=== PATIENT | female | born 1970 | race African-American/Black ===

== ENCOUNTER 2016-09-24 14:15 | Emergency (ER) | payer BC, OTHER ==
[~2016-09-24] VITALS: Ht 162.6 cm; Wt 69.5 kg
[~2016-09-24 14:15] MED LIST: FER325 PO; FOLI-49 PO; LIPA1CAP4 PO; MULTI PO; OMEG1CAP55 PO; ONDA4TAB11 PO; ONDA4TAB8 PO; THIA100T10 PO
[2016-09-24 14:37] VITALS: Ht 162.6 cm; Wt 69.5 kg
--- NOTE | 2016-09-24 15:44 | EN ---
Date/Time of Note Date/Time of Note DATE: 09/24/16 TIME: 15:43 ER Progress Note Pt wishes to continue waiting for the possibility of getting blood work done. JADE CASPER PA-C Sep 24, 2016 15:44
--- NOTE | 2016-09-24 17:29 | ERD ---
ER Documentation Chief Complaint Date/Time DATE: 09/24/16 TIME: 17:25 Chief Complaint med refil for pancreatic enzymes and vitamins HPI Patient presents with no current complaints. Wants refills on her medications. Denies chest pain, shortness of breath, abdominal pain, nausea, vomiting, diarrhea, and alcohol or drug use. ROS All systems reviewed and are negative except as per history of present illness. Medications Home Meds Active Scripts Ondansetron Hcl* (Zofran*) 4 Mg Tablet, 4 MG PO Q6H for NAUSEA AND/OR VOMITING, #30 TAB Prov:MARY KERNS PA-C 05/20/16 Ondansetron (Zofran Odt) 4 Mg Tab.rapdis, 4 MG PO Q6, #10 Prov:JUANJOSE MALIK DO 05/19/16 [place]-3/Dha/Epa/Fish Oil (FISH OIL EC 1,000 MG SOFTGEL) 1 Each Capsule., 1000 MG PO BID for 30 Days Prov:GALLAGHEROLGA V. SEO SPECIALIST 05/03/16 Multivitamins* (Theragran*) 1 Tab Tab, 1 TAB PO DAILY for 30 Days, TAB Prov:GALLAGHERTAWANAOLGA V. SEO SPECIALIST 05/03/16 Thiamine* (Thiamine*) 100 Mg Tablet, 100 MG PO DAILY for 30 Days, TAB Prov:GALLAGHERTAWANAOLGA V. SEO SPECIALIST 05/03/16 Folic Acid* (Folic Acid*) 1 Mg Tablet, 1 MG PO DAILY for 30 Days, TAB Prov:GALLAGHER,OLGA V. SEO SPECIALIST 05/03/16 Reported Medications Ferrous Sulfate* (Ferrous Sulfate*) 325 Mg Tabec, 325 MG PO DAILY, TAB 01/31/16 Tidzbd-Fyefbnut-Xswbpjg* ([place] BROWN* 12,000) 12,000 L-38,000-60,000 Unit Capsule., 1 CAP PO TID, #90 01/31/16 Allergies Allergies: Coded Allergies: Sulfa (Sulfonamide Antibiotics) (Unverified Allergy, Unknown, RASH, ) PMhx/Soc History of Surgery: Yes (ectopic , LT ELBOW) Anesthesia Reaction: No Hx Neurological Disorder: No Hx Respiratory Disorders: Yes Hx Cardiac Disorders: Yes Hx Psychiatric Problems: No Hx Miscellaneous Medical Probl: Yes (PANCREATITIS, GERD, RHEUMATOID ARTHRITIS) Hx Alcohol Use: Yes (STOPPED 2-WEEKS AGO) Hx Substance Use: No Hx Tobacco Use: Yes Smoking Status: Current every day smoker Physical Exam Vitals Vital Signs Date Time Temp Pulse Resp B/P Pulse Ox O2 Delivery O2 Flow Rate FiO2 09/24/16 14:37 98.4 71 18 141/81 99 Physical Exam Const: No acute distress Head: Atraumatic Eyes: Normal Conjunctiva ENT: Normal External Ears, Nose and Mouth. Neck: Full range of motion..~ No meningismus. Resp: Clear to auscultation bilaterally Cardio: Regular rate and rhythm, no murmurs Abd: Soft, non tender, non distended. Normal bowel sounds Skin: No petechiae or rashes Back: No midline or flank tenderness Ext: No cyanosis, or edema Neur: Awake and alert Psych: Normal Mood and Affect Procedures/MDM Patient has no complaints at this time. Have advised the patient that she should be getting her prescription refills at her primary care provider. I will give him a prescription and then she will have to follow-up with her PCP in the future. Departure Condition: Stable Additional Instructions: Follow-up with PCP for refill prescriptions in the future. JADE CASPER PA-C Sep 24, 2016 17:29 for pain and swelling. Departure Condition: Stable Additional Instructions: Follow-up with PCP for refill prescriptions in the future. JADE CASPER PA-C Sep 24, 2016 17:29
[2016-09-24] MEDS ORDERED: IBUP-1542 PO (18:51)
[2016-09-24] MEDS ORDERED: LIPA1CAP4 PO (18:51)
[2016-09-24] MEDS ORDERED: THIA100T10 PO (18:51)
[2016-09-24] MEDS ORDERED: NEPH PO (18:51)
[2016-09-24] MEDS ORDERED: FOLI-49 PO (18:51)
[2016-09-24] MEDS ORDERED: HYDR-3670 PO (18:51)
[2016-09-24] MEDS ORDERED: HYDR-3012 PO (19:26)
[2016-09-24 19:30] VITALS: BP 130/78; PULSE 78; RESP 18; TEMP 98.9
== END 2016-09-24 19:44 | disposition home or self-care (01) ==
LOC: FTE 14:15
DX: Z76.0 Encounter for issue of repeat prescription (principal); F17.210 Nicotine dependence, cigarettes, uncomplicated
CPT/HCPCS: 99281

== ENCOUNTER 2016-11-19 21:20 | Emergency (ER) | payer BC, OTHER ==
[~2016-11-19] VITALS: Ht 162.6 cm; Wt 70.0 kg
[~2016-11-19 21:20] MED LIST changes: +HYDR-3012 PO; +HYDR-3670 PO; +IBUP-1542 PO; +NEPH PO
[2016-11-19] MEDS ORDERED: ONDANSETRON 4 MG INJ IV STA (21:26)
[2016-11-19] MEDS ORDERED: SOD CHLORIDE 0.9% 1,000 ML IV STA (21:26)
[2016-11-19] MEDS ORDERED: HALOPERIDOL 5 MG INJ IM STA (21:26)
[2016-11-19] MEDS ORDERED: LORAZEPAM 2 MG INJ IM ONE (21:30)
[2016-11-19 21:32] VITALS: Ht 162.6 cm; Wt 70.0 kg
--- NOTE | 2016-11-19 21:32 | ERD ---
ER Documentation Chief Complaint Date/Time DATE: 11/19/16 TIME: 21:28 Chief Complaint HPI This is a 46-year-old -[place] female presents to the emergency department brought in by EMS after the patient was found on the corner of a sidewalk sitting down drinking vodka straight from a liter bottle. A bystander had phoned 911 as the patient appeared to be clinically intoxicated. EMS indicated when the patient arrived she had quickly drank the rest of the vodka. She had an episode of nonbloody nonbilious emesis shortly after. They indicated there is no signs of trauma or drug paraphernalia. The patient denied any illicit drug use and stated she did not have a headache or changes in vision. She denied any abdominal pain. She denies any hemoptysis hematemesis or melanotic stools. ROS All systems reviewed and are negative except as per history of present illness. Medications Home Meds Active Scripts Hydroxyzine Hcl* (Hydroxyzine Hcl*) 50 Mg Tablet, 50 MG PO Q6H Y for ITCHING for 14 Days, #30 TAB Prov:JADE CASPER PA-C 09/24/16 Hydralazine Hcl* (Hydralazine Hcl*) 10 Mg Tablet, 10 MG PO Q6H Y for PRURITUS for 14 Days, #60 TAB Prov:JADE CASPER PA-C 09/24/16 Folic Acid* (Folic Acid*) 1 Mg Tablet, 1 MG PO DAILY for 14 Days, TAB Prov:JADE CASPER PA-C 09/24/16 Thiamine* (Thiamine*) 100 Mg Tablet, 100 MG PO DAILY for 14 Days, TAB Prov:JADE CASPER PA-C 09/24/16 Bnxksa-Ihdqcmav-Mscgmpl* (Creon DR* 12,000) 12,000 L-38,000-60,000 Unit Capsule.dr, 1 CAP PO WITH MEALS for 14 Days, CAP Prov:JADE CASPER PA-C 09/24/16 Multivit/Ca Carb/B Cmplx/Fa* (Lucila-Rosibel*) 1 Tab Tab, 1 TAB PO DAILY for 14 Days , TAB Prov:JADE CASPER PA-C 09/24/16 Ibuprofen* (Motrin*) 600 Mg Tab, 600 MG PO Q6H Y for PAIN AND OR ELEVATED TEMP, #14 TAB Prov:JADE CASPER PA-C 09/24/16 Ondansetron Hcl* (Zofran*) 4 Mg Tablet, 4 MG PO Q6H for NAUSEA AND/OR VOMITING, #30 TAB Prov:MARY KERNS PA-C 05/20/16 Ondansetron (Zofran Odt) 4 Mg Tab.rapdis, 4 MG PO Q6, #10 Prov:JUANJOSE MALIK DO 05/19/16 [place]-3/Dha/Epa/Fish Oil (FISH OIL EC 1,000 MG SOFTGEL) 1 Each Capsule.dr, 1000 MG PO BID for 30 Days Prov:GALLAGHER,OLGA V. AND RESCUE FIRE FIGHTER CRASH FIRE 05/03/16 Multivitamins* (Theragran*) 1 Tab Tab, 1 TAB PO DAILY for 30 Days, TAB Prov:GALLAGHER,OLGA V. AND RESCUE FIRE FIGHTER CRASH FIRE 05/03/16 Thiamine* (Thiamine*) 100 Mg Tablet, 100 MG PO DAILY for 30 Days, TAB Prov:GALLAGHER,OLGA V. AND RESCUE FIRE FIGHTER CRASH FIRE 05/03/16 Folic Acid* (Folic Acid*) 1 Mg Tablet, 1 MG PO DAILY for 30 Days, TAB Prov:GALLAGHER,OLGA V. AND RESCUE FIRE FIGHTER CRASH FIRE 05/03/16 Reported Medications Ferrous Sulfate* (Ferrous Sulfate*) 325 Mg Tabec, 325 MG PO DAILY, TAB 01/31/16 Brctia-Moxhbaba-Dsvsusl* ([place] BROWN* 12,000) 12,000 L-38,000-60,000 Unit Capsule.dr, 1 CAP PO TID, #90 01/31/16 Allergies Allergies: Coded Allergies: Sulfa (Sulfonamide Antibiotics) (Unverified Allergy, Unknown, RASH, ) PMhx/Soc History of Surgery: Yes (ectopic , LT ELBOW) Anesthesia Reaction: No Hx Neurological Disorder: No Hx Respiratory Disorders: Yes Hx Cardiac Disorders: Yes Hx Psychiatric Problems: No Hx Miscellaneous Medical Probl: Yes (PANCREATITIS, GERD, RHEUMATOID ARTHRITIS) Hx Alcohol Use: Yes (STOPPED 2-WEEKS AGO) Hx Substance Use: No Hx Tobacco Use: Yes Physical Exam Physical Exam Constitutional:Well-developed. Well-nourished. The patient was being very belligerent, yelling profanities at nursing staff as well as EMS. HEENT:Normocephalic. Atraumatic.Pupils were equal round reactive to light. Moist mucous membranes.No tonsillar exudates. No nasal septal hematoma. No hemotympanum. Neck: No nuchal rigidity. No lymphadenopathy. No posterior cervical spine tenderness or step-offs. Respiratory: Not using accessory muscles of respiration.Lungs were clear to auscultation bilaterally. No rhonchi. No rales. No wheezing. Cardiovascular: Regular rate regular rhythm.No murmurs. No rubs were appreciated.S1, S2 normal. Distal pulses are palpable 2+ bilaterally. GI: Abdomen was soft. Nontender. Non Distended. No pulsatile abdominal masses or bruits. No rebound. No guarding. Bowel sounds were present and normal. Muscle skeletal: Full range of motion of both the upper and lower extremities bilaterally.Normal muscle tone.No assymetrical calf tenderness or swelling. Skin: No petechia, no purpura. No lesions on the palms or the soles of the feet. No maculopapular rash. NEURO: Patient was alert, awake, orientated x3.No facial droop. Patient smelled of alcohol. Gait observed and was ataxic with slurred speech. Procedures/MDM The patient presented to the emergency department with an acute and persistent change in their mental status. The differential diagnosis is diverse however reversible causes such as hypoglycemia, opiate overdose, thiamine deficiency were immediately considered. The patient was placed on a high man, continuous pulse oximetry and IV access was established. The patients airway was secure however hypoxic events such as anemia, shock, or severe pulmonary disease were all considered as etiologies in this patients presentation. Circulation assessed with good cap refill and did not require fluids or pressure support. Finger stick for rapid glucose determined to be normal. I did feel the patient's encephalopathy was likely result of acute alcohol intoxication as her serum ethanol level was elevated. The patient became very belligerent with both nursing staff and myself and verbal de-escalation was unable to calm the patient down. She was attempting to leave but given that I felt she was clinically intoxicated and was a threat to herself given that she could fall and undergo head trauma, she was chemically sedated with Haldol and Ativan in order to prevent removal of life saving devices. IV access had been established afterwards and the patient received IV Zofran and a liter bolus of 0.9 normal saline. Observation Note: Time: 4 hours Family Hx: No Hypertension Evaluation: Multiple exams showed improving symptoms and no evidence of alcohol intoxication, neurological deficits or delirium tremors The patient was discharged home in fair condition. They were instructed to return to the emergency department at any time if there was any worsening of their condition. The patient stated they would follow up with their PCP in the next 24-48 hours to initiate a suitable medication regimen under the care of their PCP as well as to allow their PCP to monitor any drug reactions. The patient was discharged home with prescriptions after they gave informed consent to the new medication. They were also fully informed by myself on the adverse effects and adverse drug interactions in order to provide adequate safeguards to prevent possible adverse reactions to medications. Departure Diagnosis: Primary Impression: Alcoholic intoxication Complication of substance-induced condition: uncomplicated Qualified Code: F10.120 - Alcoholic intoxication, uncomplicated Condition: Fair SHAUNNA DUQUE November 19, 2016 21:32
[2016-11-19 22:32] LABS: ADD SCAN DIFF NO
[2016-11-19 22:37] LABS: BASOPHILS % 0.7 % (0.0-2.0); EOSINOPHILS % 0.5 % (0.0-7.0); HEMATOCRIT 37.5 % (37.0-47.0); HEMOGLOBIN 12.8 g/dl (12.0-16.0); LYMPHOCYTES # 1.5 10^3/ul (0.8-2.9); LYMPHOCYTES % 32.9 % (15.0-51.0); MEAN CORPUSCULAR HEMOGLOBIN 27.6 pg (29.0-33.0); MEAN CORPUSCULAR HGB CONC 34.1 g/dl (32.0-37.0); MEAN PLATELET VOLUME 11.7 fl (7.4-10.4); MONOCYTE # 0.7 10^3/ul (0.3-0.9); MONOCYTES % 15.6 % (0.0-11.0); NEUTROPHIL # 2.2 10^3/ul (1.6-7.5); NEUTROPHILS % 49.8 % (39.0-77.0); PLATELET COUNT 159 10^3/UL (140-415); RED BLOOD COUNT 4.63 10^6/ul (4.20-5.40); RED CELL DISTRIBUTION WIDTH 17.4 % (11.5-14.5); WHITE BLOOD COUNT 4.4 10^3/ul (4.8-10.8)
[2016-11-19 22:53] LABS: AMYLASE 161 U/L (11-123)
[2016-11-19 23:09] LABS: ALBUMIN 4.9 g/dl (3.3-4.9)
[2016-11-19 23:10] LABS: CHLORIDE 86 mmol/L (97-110); POTASSIUM 3.5 mmol/L (3.5-5.1); SODIUM 136 mmol/L (135-144)
[2016-11-19 23:12] LABS: ANION GAP 27 (8-16); ASPARTATE AMINO TRANSFERASE 119 IU/L (15-46); BILIRUBIN,INDIRECT 0.5 mg/dl (0-1.1); BILIRUBIN,TOTAL 0.5 mg/dl (0.2-1.3); CARBON DIOXIDE 27 mmol/L (21-31); CREATININE 1.09 mg/dl (0.44-1.00)
[2016-11-19 23:13] LABS: ALANINE AMINOTRANSFERASE 79 IU/L (13-69); ALBUMIN/GLOBULIN RATIO 1.44; ALKALINE PHOSPHATASE 63 IU/L (42-121); BLOOD UREA NITROGEN 10 mg/dl (7-20); CALCIUM 9.5 mg/dl (8.4-10.2); GLUCOSE 116 mg/dl (70-220); SALICYLATE < 1.0 mg/dl (5.0-30.0); TOTAL PROTEIN 8.3 g/dl (6.1-8.1)
[2016-11-19 23:14] LABS: ACETAMINOPHEN < 10.0 ug/ml (10.0-30.0)
[2016-11-20 04:39] VITALS: TEMP 97.8
[2016-11-20 05:03] VITALS: BP 133/90; PULSE 117; RESP 18
== END 2016-11-20 05:04 | disposition home or self-care (01) ==
LOC: E/R 21:20
DX: F10.120 Alcohol abuse with intoxication, uncomplicated (principal); Z87.891 Personal history of nicotine dependence
CPT/HCPCS: 36415; 80053; 80306; 82150; 83690; 84703; 85025; 96372; 96374; J1630; J2060; J2405; J7030; Z7502

== ENCOUNTER 2017-03-23 04:06 | Emergency (ER) | payer OTHER ==
[~2017-03-23] VITALS: Ht 157.5 cm; Wt 63.5 kg
[~2017-03-23 04:06] MED LIST changes: -FOLI-49 PO; -MULTI PO; -OMEG1CAP55 PO; -ONDA4TAB8 PO
[2017-03-23 04:10] VITALS: Ht 157.5 cm; Wt 63.5 kg
[2017-03-23] MEDS ORDERED: IBUPROFEN 600 MG TAB PO ONE (04:30)
[2017-03-23] MEDS ORDERED: LORAZEPAM 2 MG INJ IM ONE (04:30)
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
[2017-03-23] MEDS ORDERED: IBUP-1542 PO (05:10)
--- NOTE | 2017-03-23 05:43 | RADRPT ---
PROCEDURE: Noncontrast CT Head. CLINICAL INDICATION: Pain. TECHNIQUE: Noncontrast CT of the head was obtained. The administered radiation dose was CTDI vol = 43 mGy, DLP = 720 mGy-cm. One or more of the following dose reduction techniques were used: automate d exposure control, adjustment of the mA and/or kV according to patient size and/or use of iterative reconstruction technique. COMPARISON: No pertinent prior examinations were submitted for comparison. FINDINGS: The ventricles and sulci are within normal limits. There is no acute intracranial hemorrhage or ext ra-axial fluid collection. There is no mass effect. No midline shift is identified. There is no loss of mistry-white differentiation to suggest acute infarction. The calvarium and skull base are grossly intact. Please refer to the CT scan of the facial bones. IMPRESSION: No acute findings. RPTAT: HIKT .Jerome Fletcher MD, MD Date Time Electronically viewed and signed by .Jerome Fletcher MD, on 03/23/2017 05:42 .T/
--- NOTE | 2017-03-23 05:49 | RADRPT ---
PROCEDURE: Noncontrast CT facial bones. CLINICAL INDICATION: Trauma. TECHNIQUE: Noncontrast CT of the facial bones was obtained. Coronal and sagittal re-formations were provided. The administered radiation dose was CTDI vol = 29 mGy, DLP = 488 mGy-cm. One or more of the following dose reduction techniques were used: automated exposure control, adjustment of the mA and/or kV according to patient size and/or use of iterative reconstruction technique. COMPARISON: No pertinent prior examinations were submitted for comparison. FINDINGS: No acute facial bone fractures are seen. The globes are intact. The bony orbits are without worrisome osseous lesion. The extraocular muscl es and optic nerve complexes are normal in caliber. No intraorbital hematoma or inflammatory change s are present. The paranasal sinuses and mastoid air cells are without fluid. IMPRESSION: No acute fracture. RPTAT: HIKT .Jerome Fletcher MD, MD Date Time Electronically viewed and signed by .Jerome Fletcher MD, on 03/23/2017 05:48 .T/
[2017-03-23 06:38] VITALS: BP 135/79; PULSE 70; RESP 18; TEMP 97.9
== END 2017-03-23 09:59 | disposition home or self-care (01) ==
LOC: E/R 04:06
DX: F10.10 Alcohol abuse, uncomplicated (principal); S00.83XA Contusion of other part of head, initial encounter; I10 Essential (primary) hypertension; Y08.89XA Assault by other specified means, initial encounter
CPT/HCPCS: 70450; 70486; 80306; 96372; J2060; Z7502; Z7610

== ENCOUNTER 2017-03-23 19:41 | Emergency (ER) | payer OTHER ==
[~2017-03-23] VITALS: Ht 167.6 cm; Wt 68.0 kg
[2017-03-23 20:11] VITALS: Ht 167.6 cm; Wt 68.0 kg
[2017-03-23 20:16] LABS: BASOPHILS % 0.9 % (0.0-2.0); EOSINOPHILS # 0.1 10^3/ul (0.0-0.5); EOSINOPHILS % 1.5 % (0.0-7.0); HEMATOCRIT 31.9 % (37.0-47.0); HEMOGLOBIN 11.3 g/dl (12.0-16.0); LYMPHOCYTES # 1.5 10^3/ul (0.8-2.9); LYMPHOCYTES % 44.9 % (15.0-51.0); MEAN CORPUSCULAR HEMOGLOBIN 28.4 pg (29.0-33.0); MEAN CORPUSCULAR HGB CONC 35.4 g/dl (32.0-37.0); MEAN CORPUSCULAR VOLUME 80.2 fl (82.0-101.0); MEAN PLATELET VOLUME 11.9 fl (7.4-10.4); MONOCYTE # 0.3 10^3/ul (0.3-0.9); MONOCYTES % 8.1 % (0.0-11.0); NEUTROPHILS % 44.3 % (39.0-77.0); PLATELET COUNT 116 10^3/UL (140-415); RED BLOOD COUNT 3.98 10^6/ul (4.20-5.40); RED CELL DISTRIBUTION WIDTH 14.8 % (11.5-14.5); WHITE BLOOD COUNT 3.3 10^3/ul (4.8-10.8)
[2017-03-23 20:21] LABS: ADD UMIC NO; UR ASCORBIC ACID NEGATIVE (NEGATIVE); UR BACTERIA FEW /HPF (NONE SEEN); UR BILIRUBIN (Dip) NEGATIVE (NEGATIVE); UR BLOOD (Dip) NEGATIVE (NEGATIVE); UR CLARITY SLIGHTLY CLOUDY (CLEAR); UR COLOR YELLOW (YELLOW); UR GLUCOSE (Dip) NEGATIVE (NEGATIVE); UR KETONES (Dip) NEGATIVE (NEGATIVE); UR LEUKOCYTE ESTERASE (Dip) NEGATIVE Leu/ul (NEGATIVE); UR NITRITE (Dip) NEGATIVE (NEGATIVE); UR RBC 0 /HPF (0-5); UR SPECIFIC GRAVITY (Dip) 1.012 (1.003-1.030); UR SQUAMOUS EPITHELIAL CELL FEW /HPF (FEW); UR TOTAL PROTEIN (Dip) NEGATIVE (NEGATIVE); UR UROBILINOGEN (Dip) NEGATIVE (NEGATIVE)
[2017-03-23 20:33] LABS: ALBUMIN/GLOBULIN RATIO 1.29; BILIRUBIN,INDIRECT 0.4 mg/dl (0-1.1); BILIRUBIN,TOTAL 0.4 mg/dl (0.2-1.3); CALCIUM 8.8 mg/dl (8.4-10.2); CREATININE 0.95 mg/dl (0.44-1.00); POTASSIUM 4.1 mmol/L (3.5-5.1); TOTAL PROTEIN 7.1 g/dl (6.1-8.1)
--- NOTE | 2017-03-23 20:42 | ERA ---
ER Documentation Chief Complaint Date/Time DATE: 03/23/17 TIME: 20:37 Chief Complaint bib ra from street for etoh and shoulder pain HPI This is a 46-year-old female who is a very poor historian who presents via EMS for alcohol intoxication. The patient is a very limited and difficult historian and is having a labile mood and intermittently crying. She admits to drinking a significant amount of alcohol tonight. She is describing left trapezius and shoulder pain for "several months ". She states that "somebody needs to x-ray this shit ". The patient denies any falls or trauma, no chest pain or shortness of breath. She states the pain is worse when moving and " just needs to be fixed". When asked if she is suicidal the patient cries and says I think i might be. ROS All systems reviewed and are negative except as per history of present illness. Medications Home Meds Active Scripts Ibuprofen* (Ibuprofen*) 600 Mg Tablet, 600 MG PO Q8 for PAIN AND/OR INFLAMMATION , #30 TAB Prov:SERGIO CONNELLY MD 03/23/17 Hydroxyzine Hcl* (Hydroxyzine Hcl*) 50 Mg Tablet, 50 MG PO Q6H Y for ITCHING for 14 Days, #30 TAB Prov:JADE CASPER PA-C 09/24/16 Hydralazine Hcl* (Hydralazine Hcl*) 10 Mg Tablet, 10 MG PO Q6H Y for PRURITUS for 14 Days, #60 TAB Prov:JADE CASPER PA-C 09/24/16 Thiamine* (Thiamine*) 100 Mg Tablet, 100 MG PO DAILY for 14 Days, TAB Prov:JADE CASPER PA-C 09/24/16 Multivit/Ca Carb/B Cmplx/Fa* (Lucila-Rosibel*) 1 Tab Tab, 1 TAB PO DAILY for 14 Days , TAB Prov:JADE CASPER PA-C 09/24/16 Ibuprofen* (Motrin*) 600 Mg Tab, 600 MG PO Q6H Y for PAIN AND OR ELEVATED TEMP, #14 TAB Prov:JADE CASPER PA-C 09/24/16 Ondansetron (Zofran Odt) 4 Mg Tab.rapdis, 4 MG PO Q6, #10 Prov:JUANJOSE MALIK DO 05/19/16 Reported Medications Ferrous Sulfate* (Ferrous Sulfate*) 325 Mg Tabec, 325 MG PO DAILY, TAB 01/31/16 Enxwmb-Pyindjqy-Cfhwrwq* ([place] BROWN* 12,000) 12,000 L-38,000-60,000 Unit Capsule., 1 CAP PO TID, #90 01/31/16 Allergies Allergies: Coded Allergies: Sulfa (Sulfonamide Antibiotics) (Unverified Allergy, Unknown, RASH, ) PMhx/Soc Medical and Surgical Hx: pt denies Medical Hx, pt denies Surgical Hx History of Surgery: Yes (ectopic , LT ELBOW) Anesthesia Reaction: No Hx Neurological Disorder: No Hx Respiratory Disorders: Yes Hx Cardiac Disorders: Yes Hx Psychiatric Problems: No Hx Miscellaneous Medical Probl: Yes (PANCREATITIS, GERD, RHEUMATOID ARTHRITIS) Hx Alcohol Use: Yes Hx Substance Use: No Hx Tobacco Use: No Smoking Status: Current every day smoker FmHx Family History: No diabetes Physical Exam Vitals Vital Signs Date Time Temp Pulse Resp B/P Pulse Ox O2 Delivery O2 Flow Rate FiO2 03/23/17 20:11 98.6 101 18 126/81 100 Physical Exam General: Smells strongly of alcohol, labile mood, tearful Head: Normocephalic, atraumatic Eyes: Pupils equally reactive, EOM intact ENT: Moist mucous membranes Neck: Supple, no lymphadenopathy Respiratory: Lungs clear bilaterally, no distress Cardiovascular: RRR, no murmurs, rubs, or gallops Abdominal: Soft, non-tender, non-distended, no peritoneal signs : Deferred MSK: Soft tissue tenderness along the left trapezius muscle and shoulder but full active and passive range of motion without bony abnormalities or deformities. Left upper extremity is neurovascular intact distally. No midline tenderness deformities or step-offs to the thoracolumbar spine Neurologic: Poorly cooperative, intoxicated, moving all extremities Skin: No rash, no evidence of trauma Psych: Labile mood, suicidal ideation Result Diagram: 03/23/17 1950 03/23/171949 Results 24 hrs Laboratory Tests Test 03/23/17 19:50 03/23/17 20:00 White Blood Count 3.310^3/ul Red Blood Count 3.9810^6/ul Hemoglobin 11.3g/dl Hematocrit 31.9% Mean Corpuscular Volume 80.2fl Mean Corpuscular Hemoglobin 28.4pg Mean Corpuscular Hemoglobin Concent 35.4g/dl Red Cell Distribution Width 14.8% Platelet Count 71374^3/UL Mean Platelet Volume 11.9fl Neutrophils % 44.3% Lymphocytes % 44.9% Monocytes % 8.1% Eosinophils % 1.5% Basophils % 0.9% Nucleated Red Blood Cells % 0.0/100WBC Neutrophils # (Manual) 1.510^3/ul Lymphocytes # 1.510^3/ul Monocytes # 0.310^3/ul Eosinophils # 0.110^3/ul Basophils # 0.010^3/ul Nucleated Red Blood Cells # 0.010^3/ul Sodium Level 142mmol/L Potassium Level 4.1mmol/L Chloride Level 102mmol/L Carbon Dioxide Level 24mmol/L Anion Gap 20 Blood Urea Nitrogen 14mg/dl Creatinine 0.95mg/dl Glucose Level 76mg/dl Calcium Level 8.8mg/dl Total Bilirubin 0.4mg/dl Direct Bilirubin 0.00mg/dl Indirect Bilirubin 0.4mg/dl Aspartate Amino Transf (AST/SGOT) 52IU/L Alanine Aminotransferase (ALT/SGPT) 35IU/L Alkaline Phosphatase 56IU/L Total Protein 7.1g/dl Albumin 4.0g/dl Globulin 3.10g/dl Albumin/Globulin Ratio 1.29 Ethyl Alcohol Level 393.0mg/dl Urine Color YELLOW Urine Clarity SLIGHTLY CLOUDY Urine pH 5.0 Urine Specific [place] 1.012 Urine Ketones NEGATIVEmg/dL Urine Nitrite NEGATIVEmg/dL Urine Bilirubin NEGATIVEmg/dL Urine Urobilinogen NEGATIVEmg/dL Urine Leukocyte Esterase NEGATIVELeu/ul Urine Microscopic RBC 0/HPF Urine Microscopic WBC 2/HPF Urine Squamous Epithelial Cells FEW/HPF Urine Bacteria FEW/HPF Urine Hemoglobin NEGATIVEmg/dL Urine Glucose NEGATIVEmg/dL Urine Total Protein NEGATIVEmg/dl Urine Opiates Screen Negative Urine Barbiturates Negative Urine Amphetamines Screen Negative Urine Benzodiazepines Screen Negative Urine Cocaine Screen Negative Urine Cannabinoids Negative Current Medications Medications (Trade) Dose Ordered Sig/Yue Route PRN Reason Start Time Stop Time Status Last Admin Dose Admin Ibuprofen (Motrin) 800 mg ONCE ONCE PO 03/23/17 22:00 03/23/17 22:03 DC 03/23/17 22:04 Procedures/MDM EKG/DIAGNOSTIC IMAGING: Chest x-ray: I reviewed and interpreted a 1 view of the chest Mediastinum: No enlargement Cardiac silhouette: No cardiomegaly Airspace: Clear lung pham bilaterally without evidence of pneumothorax Bones: No evidence of fracture X-ray left shoulder: I reviewed and interpreted multiple views of the x-ray Bones: No evidence of acute fracture dislocation or subluxation Soft tissue: No evidence of foreign body LAB INTERPRETATION: Pancytopenia consistent with baseline secondary to likely chronic alcohol abuse , etoh elevation MEDICAL DECISION MAKING: The patient's presentation is consistent with underlying psychiatric illness or alcohol intoxication. The patient suicidal thoughts may only be related to her alcohol intoxication she may benefit from reevaluation once she is sober. The patient's shoulder pain appears to be very consistent with musculoskeletal etiology likely trapezius strain. It is chronic. No signs of pulmonary embolism or dissection. X-ray imaging of the chest and shoulder would be reasonable. No evidence of trauma. I have a much lower clinical concern for delirium or acute organic pathology such as toxicologic, metabolic, ischemic, intracranial hemorrhage, infectious process. However, we must rule this out prior to relying a diagnosis of underlying psychiatric illness. The patient's workup will include medical screening examination, laboratory analysis, and diagnostic imaging such as EKG, chest x-ray or CT brain as indicated. If the patient's medical examination and laboratory analysis do not reveal acute organic pathology the patient will be medically cleared for psychiatric evaluation. ER COURSE: The patient's laboratory analysis, diagnostic imaging do not suggest an acute organic pathology. At this time I believe the patient's presentation is very consistent with underlying psychiatric illness. The patient is medically cleared for psychiatric evaluation. I kept the patient and/or family informed of laboratory and diagnostic imaging results throughout the emergency room course. CONSULTATION: Psychiatric consultation: Telemetry medicine psychiatry has been consulted on this case to evaluate the patient for possible acute psychiatric illness that would require inpatient hospitalization. DISPOSITION PLAN: Pending psychiatric evaluation and sobriety Departure Diagnosis: Primary Impression: Alcoholic intoxication Qualified Code: F10.920 - Alcoholic intoxication without complication Additional Impressions: Pancytopenia Strain of left trapezius muscle Qualified Code: S46.812A - Strain of left trapezius muscle, initial encounter Suicidal ideation Condition: Stable JEAN PAUL PICHARDO MD Mar 23, 2017 20:42
[2017-03-23 20:45] LABS: BARBITURATES Negative (NEGATIVE); BENZODIAZEPINES Negative (NEGATIVE); CANNABINOIDS Negative (NEGATIVE); COCAINE Negative (NEGATIVE); OPIATES Negative (NEGATIVE)
[2017-03-23] MEDS ORDERED: IBUPROFEN 800 MG TAB PO ONE (22:00)
--- NOTE | 2017-03-23 22:55 | RADRPT ---
PROCEDURE: Portable chest x-ray. CLINICAL INDICATION: Altered level of consciousness. TECHNIQUE: Portable AP view of the chest. COMPARISON: 05/20/2016. FINDINGS: No pulmonary edema or conolidation is identified. The cardiac silhouette is magnified. No pleural effusion is seen. There is no pneumothorax. IMPRESSION: 1. No evidence of acute cardiopulmonary disease. RPTAT: HTAR .Emile Hancock MD, MD Date Time Electronically viewed and signed by .Emile Hancock MD, on 03/23/2017 22:54 .R/
--- NOTE | 2017-03-23 22:56 | RADRPT ---
PROCEDURE: XR Shoulder. CLINICAL INDICATION: Trapezius pain. TECHNIQUE: 3 views of the left shoulder. COMPARISON: None available. FINDINGS: There is no acute fracture or dislocation. There is a healed fracture of the humeral diaphysis, part ially imaged. The coracoclavicular interval is normal. The joint spaces are preserved. There are n o periarticular calcifications. The visualized lung is clear. IMPRESSION: 1. No acute fracture or dislocation of the left shoulder. 2. Healed fracture of the humeral diaphysis. RPTAT: HTAR .Emile Hancock MD, Date Time Electronically viewed and signed by .Emile Hancock MD, on 03/23/2017 22:56 .R/
[2017-03-24] MEDS ORDERED: IBUPROFEN 600 MG TAB PO ONE (03:00)
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
--- NOTE | 2017-03-24 12:16 | EN ---
Date/Time of Note Date/Time of Note DATE: 03/24/17 TIME: 12:12 ER Progress Note Observation Note: Time: 4 hours Family Hx: Positive for diabetes PMH: RA, EtOH abuse x 20years Evaluation: Multiple exams showed improving symptoms and no evidence of clinical decompensation. This patient was signed out to me at 6 AM on March 24, 2017. This patient was pending clinical sobriety in order to have a tele-psychiatric consult completed. The patient was observed for several hours to clinical sobriety. Upon reevaluation, the patient was appropriate and alert. She is not suicidal or homicidal. I do not feel that she is going to harm herself or others. A Tele -psychiatrist did evaluate the patient and felt that she was safe for discharge. The patient is desiring help to quit alcohol. Social work spoke to her and offered her resources that she may call to complete an intake and seek treatment. At this time, the patient is stable for discharge. She will also follow-up with her primary care physician in 2-3 days for reevaluation. She will be given precautions with which to return to the emergency department. DANIELLE MILNER MD Mar 24, 2017 12:16
[2017-03-24] MEDS ORDERED: IBUPROFEN 800 MG TAB PO ONE (12:30)
[2017-03-24 12:40] VITALS: BP 129/70; PULSE 72; RESP 18; TEMP 98.1
== END 2017-03-24 12:43 | disposition home or self-care (01) ==
LOC: E/R 19:41
DX: F10.920 Alcohol use, unspecified with intoxication, uncomplicated (principal); S46.812A Strain of other muscles, fascia and tendons at shoulder and upper arm level, left arm, initial encounter; D61.818 Other pancytopenia; R45.851 Suicidal ideations; F17.210 Nicotine dependence, cigarettes, uncomplicated; X58.XXXA Exposure to other specified factors, initial encounter; Y92.410 Unspecified street and highway as the place of occurrence of the external cause
CPT/HCPCS: 36415; 71010; 73030; 80053; 80306; 80307; 81001; 85025; Z7502; Z7610; 81003

== ENCOUNTER 2017-09-25 12:04 | Emergency (ER) | END 2017-09-25 15:40 | disposition home or self-care (01) ==

== ENCOUNTER 2017-11-10 17:31 | Emergency (ER) | END 2017-11-10 18:19 | disposition left against medical advice (07) ==

== ENCOUNTER 2017-12-14 11:51 | Emergency (ER) | END 2017-12-14 13:45 | disposition home or self-care (01) ==

== ENCOUNTER 2017-12-31 16:09 | Emergency (ER) | END 2017-12-31 16:54 | disposition home or self-care (01) ==

== ENCOUNTER 2018-01-23 07:45 | Emergency (ER) | END 2018-01-26 19:00 | disposition home or self-care (01) ==

== ENCOUNTER 2018-05-11 12:18 | Emergency (ER) | END 2018-05-11 15:30 | disposition home or self-care (01) ==

== ENCOUNTER 2018-06-16 12:27 | Emergency (ER) | END 2018-06-16 19:00 | disposition home or self-care (01) ==

== ENCOUNTER 2018-11-27 13:42 | Emergency (ER) | payer OTHER ==
[~2018-11-27] VITALS: Wt 79.0 kg
[~2018-11-27 13:42] MED LIST changes: +ARIP2TAB17 PO; -FER325 PO; +FLUO10TA PO; -HYDR-3012 PO; +HYDR-3029 PO; -HYDR-3670 PO; +HYDR-4011 PO; -IBUP-1542 PO; -LIPA1CAP4 PO; -NEPH PO; +OLAN5TAB5 PO; -ONDA4TAB11 PO; +ONDA4TAB14 PO; +SIME180C39 PO; -THIA100T10 PO
[2018-11-27] MEDS ORDERED: OLANZAPINE (ODT) 5 MG TAB ODT ONE (14:30)
[2018-11-27] MEDS ORDERED: MULTI PO (14:56)
--- NOTE | 2018-11-27 16:14 | ERD ---
ER Documentation Chief Complaint Chief Complaint suicidal ideation per ems. no etoh on board. pt states plan on od on pills HPI Patient is a 48-year-old female with a history of psychiatric disease and alcohol abuse who presents with suicidal ideation. Please note the history and physical exam is limited secondary the patient is refusing to answer questions for me at this time. She was brought in by ambulance. She has a depressed affect and suicidal ideation but has no plan that she is giving me. Upon review of old medical record she has multiple visits to the ER for various complaints. Review of the emergency department information exchange system shows visits to 4 separate emergency departments for a total of 12 visits over the past 1 year. ROS All systems reviewed and are negative except as per history of present illness. Medications Home Meds Reported Medications Multivitamins* (Theragran*) 1 Tab Tab, 1 TAB PO DAILY, TAB 11/27/18 Discontinued Reported Medications Aripiprazole* (Abilify*) Unknown Strength Tablet, PO DAILY, #30 TAB 01/23/18 Fluoxetine Hcl* (Prozac*) Unknown Strength Tablet, PO DAILY, TAB 01/23/18 Hydroxyzine Hcl* (Hydroxyzine Hcl*) 10 Mg Tablet, 10 MG PO TID, #30 TAB 01/23/18 Discontinued Scripts Simethicone (Simethicone) 180 Mg Capsule, 180 MG PO Q8 PRN for DISTENSION/GAS/BLOATING, #20 CAP Prov:SHELLY BASHIR MD 06/16/18 Ondansetron (Ondansetron Odt) 4 Mg Tab.rapdis, 4 MG PO Q6H PRN for NAUSEA AND/OR VOMITING, #10 TAB Prov:SHELLY BASHIR MD 06/16/18 Hydrocodone/Acetaminophen (Hensel 5-325 Tablet) 1 Each Tablet, 1 TAB PO Q6H PRN for PAIN, #10 TAB Prov:SHELLY BASHIR MD 06/16/18 Olanzapine* (Zyprexa*) 5 Mg Tablet, 5 MG PO BID, #60 TAB Prov:JEAN PAUL PICHARDO MD 01/26/18 Allergies Allergies: Coded Allergies: Sulfa (Sulfonamide Antibiotics) (Unverified Allergy, Unknown, RASH, 11/27/18) PMhx/Soc History of Surgery: Yes (ectopic , LT ELBOW) Anesthesia Reaction: No Hx Neurological Disorder: No Hx Respiratory Disorders: No Hx Cardiac Disorders: Yes (HTN) Hx Psychiatric Problems: No Hx Miscellaneous Medical Probl: Yes (PANCREATITIS, GERD, RHEUMATOID ARTHRITIS (IN REMISSION)) Hx Alcohol Use: No (STOPPED DRINKING 1 WEEK AGO - WAS HEAVY DRINKER) Hx Substance Use: Yes (CANNABIS) Hx Tobacco Use: Yes (1-2 CIGS/DAY) Smoking Status: Never smoker FmHx Unable to obtain Physical Exam Vitals Vital Signs Date Temp Pulse Resp B/P (MAP) Pulse Ox O2 O2 Flow FiO2 Time Delivery Rate 11/27/18 98.1 75 20 111/62 98 13:51 (78) Physical Exam Const: No acute distress Head: Atraumatic Eyes: Normal Conjunctiva ENT: Normal External Ears, Nose and Mouth. Neck: Full range of motion. No meningismus. Resp: Clear to auscultation bilaterally Cardio: Regular rate and rhythm, no murmurs Abd: Soft, non tender, non distended. Normal bowel sounds Skin: No petechiae or rashes Back: No midline or flank tenderness Ext: No cyanosis, or edema Neur: Awake and alert Psych: Depressed affect Result Diagram: 11/27/18 1408 11/27/18 1408 Results 24 hrs Laboratory Tests Test 11/27/18 14:08 White Blood Count 5.7 10^3/ul Red Blood Count 3.80 10^6/ul Hemoglobin 10.4 g/dl Hematocrit 31.9 % Mean Corpuscular Volume 83.9 fl Mean Corpuscular Hemoglobin 27.4 pg Mean Corpuscular Hemoglobin Concent 32.6 g/dl Red Cell Distribution Width 15.2 % Platelet Count 206 10^3/UL Mean Platelet Volume 10.3 fl Immature Granulocytes % 0.400 % Neutrophils % 59.5 % Lymphocytes % 28.2 % Monocytes % 10.2 % Eosinophils % 1.2 % Basophils % 0.5 % Nucleated Red Blood Cells % 0.0 /100WBC Immature Granulocytes # 0.020 10^3/ul Neutrophils # 3.4 10^3/ul Lymphocytes # 1.6 10^3/ul Monocytes # 0.6 10^3/ul Eosinophils # 0.1 10^3/ul Basophils # 0.0 10^3/ul Nucleated Red Blood Cells # 0.0 10^3/ul Sodium Level 144 mmol/L Potassium Level 3.9 mmol/L Chloride Level 104 mmol/L Carbon Dioxide Level 21 mmol/L Anion Gap 19 Blood Urea Nitrogen 14 mg/dl Creatinine 0.81 mg/dl Est Glomerular Filtrat Rate mL/min > 60 mL/min Glucose Level 63 mg/dl Calcium Level 9.0 mg/dl Total Bilirubin 1.2 mg/dl Direct Bilirubin 0.00 mg/dl Indirect Bilirubin 1.2 mg/dl Aspartate Amino Transf (AST/SGOT) 40 IU/L Alanine Aminotransferase (ALT/SGPT) 20 IU/L Alkaline Phosphatase 80 IU/L Total Protein 7.6 g/dl Albumin 4.2 g/dl Globulin 3.40 g/dl Albumin/Globulin Ratio 1.23 Salicylates Level < 1.0 mg/dl Acetaminophen Level 27.0 ug/ml Ethyl Alcohol Level 269.0 mg/dl Current Medications Medications Dose Sig/Yue Start Time Status Last (Trade) Ordered Route PRN Stop Time Admin Dose Reason Admin Olanzapine 5 mg ONCE ONCE 11/27/18 DC 11/27/18 (Zyprexa ODT 14:30 14:24 Zydis) 11/27/18 14:31 Procedures/MDM Patient is a 48-year-old female who presents with suicidal ideation. She was found to have an alcohol level of over 200. She will be seen by psychiatry. She is now medically clear. Disposition will be based on the psychiatry evaluation. Departure Diagnosis: Primary Impression: Suicidal ideation Additional Impression: Alcoholic intoxication Complication of substance-induced condition: uncomplicated Qualified Codes: F10.920 - Alcohol use, unspecified with intoxication, uncomplicated Condition: Fair Patient Instructions: Recognizing Suicide Warning Signs in Yourself, Alcohol Intoxication Referrals: [facility] (PCP) Additional Instructions: Call your primary care doctor TOMORROW for an appointment during the next 1-2 days.See the doctor sooner or return here if your condition worsens before your appointment time. DEXTER AUSTIN MD November 27, 2018 16:14
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
[2018-11-27] MEDS ORDERED: ACETAMINOPHEN 500 MG TAB PO STA (21:18)
--- NOTE | 2018-11-27 23:53 | EN ---
Date/Time of Note Date/Time of Note DATE: 11/27/18 TIME: 23:51 ER Progress Note Sign Out Note: Dr. Pro relayed current data and ongoing care with me. Time: Time of this note Main Issue: Suicide Ideations Pending: Patient intoxicated. Will need to become more sober with an alcohol level of less than 100. She is awaiting transfer to a psychiatric facility on a voluntary basis. Did not meet hold criteria. Patient was observed for 4 hours, then signed out to the oncoming ED physician pending transfer. SHELLY BASHIR MD November 27, 2018 23:53
[2018-11-28 08:41] VITALS: BP 120/76; PULSE 74; RESP 19
== END 2018-11-28 09:08 ==
LOC: E/R 13:42
DX: F10.920 Alcohol use, unspecified with intoxication, uncomplicated (principal); I10 Essential (primary) hypertension; Z87.891 Personal history of nicotine dependence
CPT/HCPCS: 36415; 80053; 80307; 81001; 81025; 85025; Z7502; Z7610; 81003

== ENCOUNTER → 2019-03-19 | Emergency (ER) | payer OTHER ==
[~2019-03-19] VITALS: Ht 162.6 cm; Wt 75.9 kg
[~2019-03-19] MED LIST changes: -ARIP2TAB17 PO; -FLUO10TA PO; -HYDR-3029 PO; -HYDR-4011 PO; +HYDROCODONE/APAP (10/325) TAB PO ONE; +MULTI PO; -OLAN5TAB5 PO; +ONDANSETRON (ODT) 4 MG TAB ODT STA; -SIME180C39 PO
[2019-03-19 14:01] VITALS: Ht 162.6 cm; Wt 75.9 kg
[2019-03-19 15:02] VITALS: BP 145/90; PULSE 87; RESP 16
== END | disposition home or self-care (01) ==
LOC: E/R 13:45
DX: R11.2 Nausea with vomiting, unspecified (principal); I10 Essential (primary) hypertension; F17.210 Nicotine dependence, cigarettes, uncomplicated; R10.13 Epigastric pain
CPT/HCPCS: Z7502; Z7610; 99283